=== PATIENT | male | born 1980 | race Caucasian/White ===

== ENCOUNTER 2017-01-23 09:28 | Emergency (ER) | payer OTHER ==
[2017-01-23 10:49] VITALS: BP 125/71
[2017-01-23] MEDS ORDERED: Tetracaine 0.5% OPTH.SOL 4 ML* 1 DROP BTL ONE (11:31)
[2017-01-23] MEDS ORDERED: Fluorescein Sodium TOPICAL* 1 MG TEST ONE (11:31)
[2017-01-23] MEDS ORDERED: BSS OPTH.SOL* BTL ONE (11:31)
--- NOTE | 2017-01-23 11:49 | UC ---
Eye Complaint HPI - HPI Summary HPI Summary: RIGHT EYE REDNESS, ITCHINESS AND DISCHARGE FOR TWO DAYS. 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 - History of Current Complaint Chief Complaint: UCEye Stated Complaint: RIGHT EYE COMPLAINT Time Seen by Provider: 01/23/17 11:11 Hx Obtained From: Patient Onset/Duration: Sudden Onset, Lasting Days, Still Present Timing: Days Severity Initially: Mild Severity Currently: Mild Location of Injury: Conjunctiva Character: Dull Aggravating Factor(s): Nothing Alleviating Factor(s): Nothing Associated Signs And Symptoms: Positive: Drainage (Purulent). Negative: Photophobia, Drainage (Clear), Vision Impairment Bilateral, Vision Impairment Right, Vision Impairment Left, Fever, Swelling - Risk Factors Penetrating Injury Risk Factor: Negative Globe Rupture Risk Factors: Negative Acute Glaucoma Risk Factors: Negative - Allergies/Home Medications Allergies/Adverse Reactions: Allergies Allergy/AdvReac Type Severity Reaction Status Date / Time No Known Allergies Allergy Verified 01/23/17 10:31 Home Medications: Home Medications [id number] [Clear Eyes Complete 7 Sym] 1 aracelis OP TID PRN [History Confirmed 01/23/17] PMH/Surg Hx/FS Hx/Imm Hx Previously Healthy: Yes - Surgical History Surgical History: None - Family History Known Family History: Negative: Diabetes, Other - NO HISTORY OF GLAUCOMA - Social History Occupation: Employed Full-time - [employer] Lives: With Family Alcohol Use: Weekly Alcohol Amount: 20 Substance Use Type: None Smoking Status (MU): Never Smoked Tobacco Review of Systems Constitutional: Negative Skin: Negative Eyes: Drainage, Eye Redness ENT: Negative Respiratory: Negative Cardiovascular: Negative Gastrointestinal: Negative Genitourinary: Negative Motor: Negative Neurovascular: Negative Musculoskeletal: Negative Neurological: Negative Psychological: Negative All Other Systems Reviewed And Are Negative: Yes Physical Exam Triage Information Reviewed: Yes Appearance: Well-Appearing, No Pain Distress, Well-Nourished Vital Signs: Initial Vital Signs Temp 98.7 F 01/23/17 10:23 Pulse 62 01/23/17 10:23 Resp 18 01/23/17 10:23 BP 125/71 01/23/17 10:23 Vital Signs Reviewed: Yes Eyes: Positive: Conjunctiva Inflamed, Discharge, Other: - ERRETHMA AT CANTHUS OF RIGHT EYE; NO FLUORESCEIN UPTAKE AT CORNEA, BUT 0.6mm LINE OF CONJUNCTIVAL UPTAKE AT CANTHAL MARGIN. NEGATIVE SIDEL'S SIGN ENT Exam: Normal ENT: Positive: Normal ENT inspection, Hearing grossly normal, Pharynx normal, TMs normal Dental Exam: Normal Neck exam: Normal Neck: Positive: Supple, Nontender Respiratory Exam: Normal Respiratory: Positive: Chest non-tender, Lungs clear, Normal breath sounds, No respiratory distress, No accessory muscle use Cardiovascular Exam: Normal Cardiovascular: Positive: RRR, No Murmur Abdominal Exam: Normal Abdomen Description: Positive: Nontender, No Organomegaly Musculoskeletal Exam: Normal Musculoskeletal: Positive: Strength Intact, ROM Intact Neurological Exam: Normal Psychological Exam: Normal Skin Exam: Normal Eye Complaint Course/Dx - Differential Dx/Diagnosis Differential Diagnosis/HQI/PQRI: Conjunctivitis, Corneal Abrasion Provider Diagnoses: RIGHT EYE CONJUNCTIVITIS. RIGHT CONJUNCTIVAL ABRASION Discharge - Discharge Plan Condition: Stable Disposition: HOME Prescriptions: Neomycin/Polymy/Dex OPTH.SUSP* [Maxitrol Opth Susp 0.1%*] 1 drop RIGHT EYE TID # 1 bottle Patient Education Materials: Corneal Abrasion (ED), Conjunctivitis (ED) Referrals: [facility] [place] [facility] [Outside] Non Staff,Doctor [Primary Care Provider] -
== END 2017-01-23 11:50 | disposition home or self-care (01) ==
LOC: UCCORT 09:28
DX: H10.31 Unspecified acute conjunctivitis, right eye (principal); S05.01XA Injury of conjunctiva and corneal abrasion without foreign body, right eye, initial encounter; X58.XXXA Exposure to other specified factors, initial encounter; Y93.9 Activity, unspecified; Y92.9 Unspecified place or not applicable
CPT/HCPCS: 99202; A9270-GY; G0463